=== PATIENT | male | born 1960 | race Caucasian/White ===

== ENCOUNTER 2022-05-21 12:40 | Emergency (ER) | payer OTHER, SELFPAY ==
[2022-05-21 12:41] VITALS: BP 159/83; PULSE 85; RESP 18; TEMP 36.6; O2SAT 98; BMI 34.1
--- NOTE | 2022-05-21 13:04 | ED.VIS.FALL ---
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 He felt right upper extremity first, landing on outstretched hand, and puncturing his right hand on something on the ground possibly a sticky is not exactly sure, injuring his right wrist and falling to his right hip and injuring that. He did not strike his head. He does not have any neck, back, or other injury including his rib cage or abdomen. He was C-collared and backboarded/splinted by EMS. He has not been drinking or under the influence of any substances today. Tetanus Immunization: >10 years Recent Illness/Hospitalization: No PFSH PFS Medical History Kidney stone Home Medications NK 05/21/22 [History Last Taken Unknown] Allergy/AdvReac Type Severity Reaction Status Date / Time No Known Allergies Allergy Verified 05/21/22 12:45 Social History Smoking Status: Never smoker ROS ROS ED Constitutional Constitutional ED: Denies chills or fever(s) Eyes Eyes: Denies change in vision or diplopia ENT ENT ED: Denies ear pain, epistaxis, facial pain or rhinorrhea Cardiovascular Cardiovascular: Denies chest pain or palpitations Respiratory/Chest Respiratory/Chest: Denies cough or dyspnea Gastrointestinal Gastrointestinal: Denies abdominal pain, diarrhea, melena, nausea or vomiting Genitourinary Genitourinary ED: Denies dysuria or hematuria Musculoskeletal Musculoskeletal: Reports extremity pain; Denies back pain or neck pain Integumentary Denies abscess, Abrasions, laceration or rash Neurologic Neurologic: Denies confusion, headache(s), paresthesias or weakness EXAM Physical Exam Const Vital Signs: 05/21/22 12:41 05/21/22 12:53 05/21/22 13:51 Temperature 97.9 F Temperature Source Temporal Pulse Rate 85 88 Respiratory Rate 18 16 Respiratory Effort Normal Blood Pressure 159/83 H 135/89 H Blood Pressure Mean 108 104 Pulse Ox 98 97 Oxygen Delivery Method Room Air Room Air Room Air 05/21/22 14:16 05/21/22 15:11 Temperature Temperature Source Pulse Rate 89 86 Respiratory Rate 12 18 Respiratory Effort Blood Pressure 137/77 H 106/68 Blood Pressure Mean 97 80 Pulse Ox 97 95 Oxygen Delivery Method Room Air Room Air Positive well nourished and well developed General Appearance ED: well developed and NAD HEENT Reports normocephalic and nasal mucous membranes and turbinates normal atraumatic; Negative for tenderness Face and Sinus: Negative for facial tenderness Eyes PERRL and EOMs intact bilaterally Visual Acuity: other Other Details: no entrapment or pain with extraocular movements Neck full ROM and supple Neck Narrative: No signs of head or neck trauma, no pain or tenderness in the midline, keenly alert with GCS 15, not intoxicated nor under influence of substance. C-collar cleared clinically, patient with full range of motion without any pain or focal neurologic symptoms. General: Negative for tenderness Chest Wall inspection of chest normal and palpation of chest normal Chest: symmetrical chest wall rise; Negative for crepitus or tenderness Resp normal respiratory effort and clear to auscultation bilaterally Percussion: other equal BS bilat Cardio no murmurs Rate: regular rate Rhythm: regular rhythm GI normal to inspection, nondistended, normoactive bowel sounds, soft to palpation and non-tender Back/Spine normal ROM Cervical Spine: Negative for cervical spine tenderness Thoracic Spine / Upper Back: Negative for thoracic spinal tenderness Lumbar Spine / Lower Back: Negative for lumbar spinal tenderness Extremity normal to inspection Extremity Narrative: Swelling and tenderness in the snuffbox of the right wrist. Limited range of motion to the wrist due to pain. Puncture wound right hand near the crease just ulnar to the thenar eminence with a V-shaped flap laceration approximately 1.5 cm, full-thickness no gross contamination. No other wounds. Tender to the right hip with limited range of motion due to pain, no shortening or deformity, tender at the right ischial tuberosity, nowhere else on the pelvis which is stable to AP and lateral compression. Mildly tender dorsum right foot midfoot only, no ankle tenderness, no swelling, no limited range of motion of the ankle joint. No forefoot tenderness. No signs of injury or swelling. Left upper and lower extremities full range of motion throughout without any pain, no bony tenderness. No bony tenderness throughout the right elbow or shoulder, nor the right knee. General Extremety ED: Yes tenderness Neuro oriented x3, CN's II-XII intact bilaterally, moves all extremities, no focal motor deficits and no sensory deficits noted [place] Coma Scale: document GCS findings Spontaneous Obeys Commands Oriented 15 Sensorium / Orientation: awake and alert Psych mental status grossly normal and thought process normal Skin Skin Narrative: Puncture wound right hand without bony metacarpal tenderness, full range of motion of fingers, see above. Lesions: no lesions Rashes: no rashes MDM MDM MDM Narrative Medical decision making narrative: Patient was sent over for screening right hip and pelvis x-rays in addition to the right wrist and chest x-ray screening due to trauma although my suspicion for thoracic injury is low. On my interpretation of his 3 view right hip x-rays, he appears to have an acetabulum fracture in addition to an inferior pubic ramus fracture. Therefore I sent him for CT of the pelvis while he was there, confirming this. This will require level 1 trauma center transfer. He does have a small pelvic hematoma associated with a right acetabulum fracture. His abdomen continues to remain benign on exam here and he remained hemodynamically stable, given IV fluids empirically in addition to the analgesics, Ancef 1 g IV, tetanus update. In addition, wrist x-rays 4 views of my interpretation show an impacted nondisplaced distal radius fracture, and 1 view chest x-ray my interpretation negative for anything acute. After his initial primary and secondary survey started saying that his right foot started hurting, that was examined and x-rayed as well. 3 views of my interpretation are negative for any acute fracture. Patient was given several doses of morphine to control his pain. He is otherwise cleared from a trauma perspective on my judgment and exam. Patient preferred to have [facility] orthopedics involved in his care, I did put a call out to the trauma surgeon personal injury litigation paralegal, and [facility] and treat patient's, accepted there by trauma surgeon Dr. Jimenez. Lab Data Attestation: I reviewed the patient's lab results. Labs: Laboratory Results - last 24 hr 05/21/22 05/21/22 12:48 12:48 WBC 10.2 RBC 5.01 Hgb 14.6 Hct 44.4 MCV 88.6 MCH 29.1 MCHC 32.9 RDW Std Deviation 44.8 H RDW Coeff of Chelle 14.0 Plt Count 245 MPV 9.2 Immature Gran % (Auto) 1.000 H Neut % (Auto) 88.0 H Lymph % (Auto) 5.9 L [place] % (Auto) 5.0 Eos % (Auto) 0.0 Baso % (Auto) 0.1 Absolute Neuts (auto) 9.0 H Absolute Lymphs (auto) 0.60 L Nucleated RBC % 0 Sodium 139 Potassium 3.6 Chloride 106 Carbon Dioxide 25.0 Anion Gap 8 BUN 16 Creatinine 1.26 Estim Creat Clear Calc 61.96 Est GFR (MDRD) Af Amer 74 Est GFR (MDRD) Non-Af 61 BUN/Creatinine Ratio 12.7 Glucose 118 H Calcium 9.4 Radiography Diagnostic Testing: Clinical Impression(s) from Imaging Studies Chest X-Ray 05/21/22 13:24 IMPRESSION: No acute pulmonary process Electronically Signed: Nader Kowalski MD at 13:43 EDT , Hip/Pelvis X-Ray 05/21/22 13:24 IMPRESSION: Acute minimally displaced right superior and inferior pubic rami fractures Electronically Signed: Nader Kowalski MD at 13:45 EDT , Wrist X-Ray 05/21/22 13:24 IMPRESSION: Acute, multi fragmented, likely osteochondral fracture of the distal radius with soft tissue swelling. Electronically Signed: Nader Kowalski MD at 13:46 EDT , Pelvis CT 05/21/22 13:28 IMPRESSION: Multiple right-sided pelvic fractures including the right iliac, at least 3 osteochondral fractures in the right acetabulum, the right superior and inferior pubic rami. There is associated soft tissue swelling and right-sided pelvic hematoma. No left-sided pelvic fractures No sacral fracture Soft tissues within the pelvis are unremarkable aside from previously noted right pelvic hematoma impinging upon the bladder Electronically Signed: Nader Kowalski MD at 14:17 EDT , Foot X-Ray 05/21/22 14:41 IMPRESSION: Normal x-ray examination of the foot. Electronically Signed: Nader Kowalski MD at 15:10 EDT , Procedures Lacerations R hand: Length: 1.5 cm Depth: Sub Q (thenar eminence musculature seen, not injured) Shape: Flap (V-shaped) Prep: Sterile Conditions and Chlorhexadine Laceration repair: Irrigated, Lidocaine (2cc, plain 1%) and Local Irrigated (ml): 150 Number of Sutures/Alivia: 2 Suture Information: Ethilon, Simple and 4-0 Comment: Tacked the skin down to align skin edges but not necessarily tightly due to nature of wound Upper Extremity Splints Upper Extremity Splint: Orthoglass (AP short arm splint. Neurovascularly intact distally.) Splint Fabrication: Fabricated Location: Right Discharge Plan Triage Chief Complaint: Fall ED Provider: Chidi Ewing Dx/Rx/DC Orders Clinical Impression: Closed fracture of right acetabulum, Closed fracture of distal end of right radius, Fall from height of greater than 3 feet, Laceration of hand, right, Puncture wound of right hand, Immunization, tetanus-diphtheria, Contusion of foot, right Prescriptions: No Action NK Primary Care Provider: Dada Gates Referrals: Jan Betancourt MD [Non-Staff] - Disposition Disposition: Acute Care Hospital Discharge Location: [facility]
[2022-05-21] MEDS: Ondansetron 4 MG/2 ML Vial IV (13:09)
[2022-05-21] MEDS: Morphine 4 MG/ML Syringe IV ×3 (13:09→15:11)
[2022-05-21] MEDS: Lidocaine 1% (20 ml mdv) 20 ML Vial INFILT (13:11)
--- NOTE | 2022-05-21 13:24 | RAD_ITS ---
STUDY: X-RAY - RIGHT WRIST REASON FOR EXAM: Male, 61 years old. Acute pain after fall TECHNIQUE: 4 view(s) of the wrist were obtained. COMPARISON: None. FINDINGS: Acute, multi fragmented likely osteochondral fracture of the distal radius with associated soft tissue swelling. Normal visualized distal ulna. Normal radiocarpal articulation. Normal distal radioulnar articulation. Normal carpal bones. Normal carpal articulations. Normal carpometacarpal articulation of the thumb. Normal second through fifth carpometacarpal articulations. Normal visualized metacarpal bones. The soft tissue structures are unremarkable. RAD/Wrist min 3 Views IMPRESSION: Acute, multi fragmented, likely osteochondral fracture of the distal radius with soft tissue swelling. Electronically Signed: Nader Kowalski MD at 13:46 EDT ,
--- NOTE | 2022-05-21 13:24 | RAD_ITS ---
STUDY: X-RAY - PELVIS AND RIGHT HIP REASON FOR EXAM: Male, 61 years old. Acute pain after fall TECHNIQUE: 3 views of the pelvis and hip. COMPARISON: None. FINDINGS: There is a non-specific bowel gas pattern. Normal visualized soft tissue structures. Acute, minimally displaced fractures noted in the right superior and inferior pubic rami. No demonstrated right femoral or left femoral fracture. 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 No clearly demonstrated acetabular or pelvic fracture, no demonstrated sacral fracture. Hip fractures in patients of this age can be subtle, if there is strong clinical suspicion of a hip fracture, recommend further evaluation with cross-sectional imaging. RAD/HIP, UNI W/ Pelvis 2-3 Views IMPRESSION: Acute minimally displaced right superior and inferior pubic rami fractures Electronically Signed: Nader Kowalski MD at 13:45 EDT ,
--- NOTE | 2022-05-21 13:24 | RAD_ITS ---
STUDY: X-RAY CHEST REASON FOR EXAM: Male, 61 years old. Chest pain after fall TECHNIQUE: Single AP portable view of the chest. COMPARISON: None. FINDINGS: EKG leads overlie the chest The lungs are clear and expanded. There is no demonstrated pleural abnormality. Normal size heart. Normal mediastinum and max. Normal visualized pulmonary arteries. Normal visualized aortic arch and descending thoracic aorta. Normal visualized thoracic spine. Normal visualized ribs, clavicles, and shoulders. There is no demonstrated abnormality of the visualized soft tissue structures of the upper abdomen. RAD/Chest 1 View (Portable) IMPRESSION: No acute pulmonary process Electronically Signed: Nader Kowalski MD at 13:43 EDT ,
--- NOTE | 2022-05-21 13:28 | CT_ITS ---
STUDY: CT PELVIS WITHOUT CONTRAST REASON FOR EXAM: Male, 61 years old. Acute pain after fall RADIATION DOSAGE (If Supplied By Facility): CTDIvol = ( 29.25 ) mGy, DLP = ( 1044.34 ) mGycm TECHNIQUE: Transaxial imaging of the pelvis was performed with oral contrast, and without intravenous administration of contrast material. Multiplanar coronal and sagittal images were reformatted. Three-dimensional reconstructions also performed Individualized dose optimization techniques were used for this CT. COMPARISON: None. FINDINGS: Multiple right-sided pelvic fractures noted. There has likely been an axial loading from the right femoral head into the acetabulum where there are at least 3 separate minimally displaced osteochondral fractures involving the anterior middle and posterior acetabulum. There is medial displacement of the medial aspect of the right acetabulum relative to the anterior and posterior aspects. There is associated soft tissue swelling. There is no right femoral fracture. There is a minimally displaced right iliac fracture. There is also minimally displaced and multi fragmented right inferior pubic ramus fracture with soft tissue swelling No demonstrated fracture to the left iliac,, left femur, left acetabulum, left superior or inferior pubic rami or the sacrum. Bladder distends normally, there is a right-sided pelvic hematoma impinging upon the right side of the bladder. Normal visualized small intestine. Normal visualized colon. Normal visualized pelvic arteries. Normal abdominal wall. CT/Pelvis without IV Contrast IMPRESSION: Multiple right-sided pelvic fractures including the right iliac, at least 3 osteochondral fractures in the right acetabulum, the right superior and inferior pubic rami. There is associated soft tissue swelling and right-sided pelvic hematoma. No left-sided pelvic fractures No sacral fracture Soft tissues within the pelvis are unremarkable aside from previously noted right pelvic hematoma impinging upon the bladder Electronically Signed: Nader Kowalski MD at 14:17 EDT ,
[2022-05-21 13:51] VITALS: BP 135/89; PULSE 88; RESP 16; O2SAT 97
[2022-05-21] MEDS: Lidocaine Jelly 2% 20 ML Syringe (URO-JET) 1 APPLIC TOPICAL (13:58)
[2022-05-21] MEDS: 0.9% Normal Saline 1,000 ML 999 ML IV (14:00)
[2022-05-21 14:16] VITALS: BP 137/77; PULSE 89; RESP 12; O2SAT 97
[2022-05-21] MEDS: Diphth,Pertuss(Acell),Tet Vac 0.5 ML Vial IM (14:25)
[2022-05-21] MEDS: Cefazolin 1 GM/50 ML BAG IV (14:26)
--- NOTE | 2022-05-21 14:41 | RAD_ITS ---
STUDY: X-RAY - RIGHT FOOT CLINICAL: Male, 61 years old. Pain and swelling TECHNIQUE: 3 view(s) of the foot. COMPARISON: None. FINDINGS: Normal talus, calcaneus, and tarsal bones. Normal visualized subtalar, talonavicular, calcaneocuboid, tarsal and tarsometatarsal articulations. Normal metatarsi. Normal metatarsophalangeal joint of the great toe. Normal tibial and fibular sesamoid bones. Normal interphalangeal joint of the great toe. Normal phalanges of the great toe. Normal second through fifth metatarsophalangeal joints. Normal interphalangeal joints and phalanges of the lesser toes. The soft tissue structures are unremarkable. RAD/Foot min 3 Views IMPRESSION: Normal x-ray examination of the foot. Electronically Signed: Nader Kowalski MD at 15:10 EDT ,
[2022-05-21 14:43] LABS: Basophil# 0.01 X10^3/uL; Basophil% 0.1 % (0-1); Hematocrit 44.4 % (40-54); Hemoglobin 14.6 g/dL (13.0-16.5); Lymphocyte % 5.9 % (19-41); Mean Corp Hgb Conc 32.9 g/dL (32-36); Mean Corpuscular Hgb 29.1 pg (27.0-32.0); Mean Corpuscular Volume 88.6 fL (80-94); Mean Platelet Vol. 9.2 fl (6.2-12.0); Monocyte# 0.51 X10^3/uL; NRBC Flagged by Analyzer 0 % (0-5); Neutrophil # 8.98 X10^3/uL (2.7-7.7); POSITIVE DIFFERENTIAL YES; Platelet Count 245 K/mm3 (150-450); RBC Distribution Width SD 44.8 fl (35.1-43.9); Red Blood Count 5.01 M/mm3 (4.6-6.2); White Blood Count 10.2 K/mm3 (4.4-11.0)
--- NOTE | 2022-05-21 14:50 | CM.ED ---
SW Note SW met with patient's and provided emotional support. Patient's has directions to [facility]. SW advised that SW is available if needs arise and verbalized appreciation. SW remains available if needs arise. Terri REDDY
[2022-05-21 15:11] VITALS: BP 106/68; PULSE 86; RESP 18; O2SAT 95
[2022-05-21 15:11] LABS: Anion Gap 8 (5-15); BUN 16 mg/dL (7-18); BUN/Creat Ratio 12.7 RATIO (10-20); Calcium,Total 9.4 mg/dL (8.5-10.1); Chloride 106 mmol/L (98-107); Creatinine, Serum 1.26 mg/dL (0.70-1.30); EST Glomerular Filtration Rate 61 mL/min (>60); Est Glom Filt Rate - Afr Amer 74 mL/min (>60); Estimated Creatinine Clearance 61.96 ml/min; Glucose 118 mg/dL (74-106); Potassium 3.6 mmol/L (3.5-5.1); Sodium Level 139 mmol/L (136-145)
[2022-05-21 15:14] LABS: Differential Indicated SCAN CRITERIA MET
[2022-05-21 15:30] VITALS: BP 112/61; PULSE 74; RESP 16; TEMP 36.6; O2SAT 93
== END 2022-05-21 15:33 | disposition short-term general hospital (02) ==
PROVIDERS: Emergency Provider Emergency Medicine; PCP Family Medicine; Visit Provider Emergency Medicine
DX: S32.401A Unspecified fracture of right acetabulum, initial encounter for closed fracture (principal); S52.91XA Unspecified fracture of right forearm, initial encounter for closed fracture; S61.411A Laceration without foreign body of right hand, initial encounter; S61.431A Puncture wound without foreign body of right hand, initial encounter; S90.31XA Contusion of right foot, initial encounter; W17.89XA Other fall from one level to another, initial encounter; Y92.008 Other place in unspecified non-institutional (private) residence as the place of occurrence of the external cause; Y93.89 Activity, other specified; Y99.8 Other external cause status
CPT/HCPCS: 12001; 29126; 29125; 51702; 71045; 72192; 73110; 73502; 73630; 80048; 85025; 90715; 96365; 96375; 96376; 99285; J7030; J7050; A4216; J2405